=== PATIENT | female | born 2000 | race African-American/Black ===

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

== ENCOUNTER 2019-08-23 13:37 | Emergency (ER) | payer BC ==
[~2019-08-23] VITALS: Ht 162.6 cm; Wt 92.1 kg
[2019-08-23 14:51] VITALS: BP 135/82
== END 2019-08-23 14:51 | disposition home or self-care (01) ==
LOC: M.ERS 13:37
DX: S00.412A Abrasion of left ear, initial encounter (principal); J45.909 Unspecified asthma, uncomplicated; W01.0XXA Fall on same level from slipping, tripping and stumbling without subsequent striking against object, initial encounter; Y93.02 Activity, running; Y92.89 Other specified places as the place of occurrence of the external cause; Y99.8 Other external cause status